=== PATIENT | male | born 1980 | race Caucasian/White ===

== ENCOUNTER 2018-12-03 16:21 | Emergency (ER) | payer SELFPAY ==
[2018-12-03 16:22] VITALS: BP 130/77; PULSE 85; RESP 16; TEMP 36.7; O2SAT 97; BMI 31.8
--- NOTE | 2018-12-03 16:50 | ED.VIS.EYE ---
History of Present Illness Chief Complaint: Eye Problem Informant: Patient Location: Left Eye Onset: Today Context: Sudden Onset Timing: Continuous Current Severity: Moderate Maximum Severity: Severe Worsened by: Light Relieved by: Nothing Associated Symptoms - Eyes: Burning, Foreign body sensation, Pain, Photophobia Visual Changes: left: Blurred vision History of injury: Yes, Direct trauma - Picking up leaves and poked with stick. Visual correction: None Narrative: Patient is a 38-year-old male presents with blunt trauma to left eye. He was poked with a stick. He denies anabolic allergies. He does report blurred vision and photophobia. Prior similar symptoms: No Recent Illness/Hospitalization: No - Past Medical History (1) No significant past medical history Status: Acute Past Medical History - Allergies and Home Meds Allergies/Adverse Reactions: Allergies oxycodone [From Percocet] Adverse Reaction (Verified 12/03/18 16:37) Nausea Primary Care Physician: NOT,DEFINED [Primary Care Provider] - Past Medical History: None Surgical History: no surgical history Lives: Spouse/ Significant Other, With Family Smoking Status: Never smoker Drugs: None Review of Systems General: Denies: Chills, Fever, Subjective Eyes: Reports: - - He reports foreign body and photophobia. Denies: Visual changes - bilaterally, Blurred Vision - bilaterally, Diplopia ENT: Denies: Rhinorrhea, Sore throat Hematologic: Denies: Easy bruising, Easy bleeding Allergy: Denies: Uticaria, Swelling of the mouth Physical Exam Visual Acuity: bilateral: 20/20 Visual Acuity: Uncorrected Eyelid: Normal inspection, Right eyelid everted, Left eyelid everted, No foreign body Right Conjunctiva/Sclera: Normal inspection, No foreign body, No erythema Left Conjunctiva/Sclera: Normal inspection, No foreign body, No erythema Right Cornea: Normal inspection Left Cornea: No foreign body, Corneal abrasion, Fluorescein dye uptake, - - There is no laceration. Negative Deirdre test. There is fluorescein uptake. There is no cells or flare noted. Extraocular Motion: Normal exam, No pain, No palsy, No nystagmus Pupils: Normal accomodation, PERRL Posterior Segment: Normal fundoscopic exam Vital Signs/Narrative: Vital Signs Temp Pulse Resp BP Pulse Ox 12/03/18 16:22 98.1 F 85 16 130/77 H 97 Patient presents with traumatic injury to the left eye. Visual acuity is 20/20. Case was discussed Dr. Buck for follow-up. She agrees with ciprofloxacin ophthalmic solution. She also requested erythromycin ophthalmic ointment. Inital Vital Signs reviewed: Yes General: Well nourished, Well developed Head: Normocephalic, Atraumatic ENT: Moist mucous membranes, No rhinorrhea, Dry mucous membranes Neurological: Alert, Oriented x3, Cranial nerves II-XII grossly intact, Normal Strength, Normal Sensation Psychological: Normal affect Diagnostic/Tx/Re-eval - Treatment and Re-Evaluation Antibiotic: left eye - Medical Decision Making Case discussed with Dr. Buck who is on for ophthalmology. Patient was discharged with prescription for erythromycin ophthalmic ointment and ciprofloxacin drops. He is to call office on Wednesday for follow-up. Procedures Procedure(s): Slit-lamp examination ED Disposition - Plan for ED Patient: Disposition: Home or Assisted Living Bad tableInstructions: ED Eye Injury Corneal Abrasion Prescriptions: Ciprofloxacin 0.3% [Ciloxan] 1 drp LEFT EYE Q2H #1 bottle Erythromycin Ophthalmic 1 applic LEFT EYE Q2H #1 tube Referrals: NOT,DEFINED [Primary Care Provider] - Nae Buck MD [STAFF PHYSICIAN] - 12/05/18
[2018-12-03] MEDS: Ciprofloxacin 0.3% 2.5ml Bottle 2 DRP LEFT EYE (17:12)
[2018-12-03] MEDS: Erythromycin Base 1 OPTH.TUBE 1 APPLIC LEFT EYE (17:12)
[2018-12-03] MEDS: Fluorescein 1 MG STRIP 1 STRIP LEFT EYE (17:13)
[2018-12-03] MEDS: Tetracaine 0.5% Ophthalmic Bottle 1 DRP LEFT EYE (17:13)
== END 2018-12-03 17:16 | disposition home or self-care (01) ==
PROVIDERS: Emergency Provider Emergency Medicine
DX: S05.02XA Injury of conjunctiva and corneal abrasion without foreign body, left eye, initial encounter (principal); W22.8XXA Striking against or struck by other objects, initial encounter; Y93.9 Activity, unspecified; Y92.9 Unspecified place or not applicable; Y99.9 Unspecified external cause status
CPT/HCPCS: 99282

== ENCOUNTER 2021-04-04 08:46 | Emergency (ER) | payer BC, SELFPAY ==
[2021-04-04 08:47] VITALS: BP 142/96; PULSE 60; RESP 16; TEMP 36.6; O2SAT 99; BMI 32.6
--- NOTE | 2021-04-04 09:11 | CT_ITS ---
STUDY: CT ABDOMEN AND PELVIS WITHOUT CONTRAST REASON FOR EXAM: Male, 40 years old. Left flank pain, eval for stone RADIATION DOSAGE (If Supplied By Facility): CTDIvol = ( 13.56 ) mGy, DLP = ( 776.07 ) mGycm TECHNIQUE: Transaxial images were obtained from the dome of the diaphragm to the symphysis pubis without oral contrast, and without intravenous contrast. Sagittal and coronal images were reconstructed. Individualized dose optimization techniques were used for this CT. COMPARISON: None. FINDINGS: The visualized lung bases are unremarkable. The visualized portions of the heart are within normal limits. Normal liver. Normal gallbladder and extrahepatic biliary system. Normal spleen. Normal pancreas. Normal bilateral adrenal glands. There is a 3.6 mm calculus in the upper pole of the right kidney. Is evidence of a horseshoe kidney. Punctate calculus in the lower pole calyx of the left kidney. There is also evidence of a 4 mm calculus in the lower pole calyx of the left kidney. There is a 4 mm calculus in the distal portion of the left ureter just proximal to the left ureterovesical vesicle junction. Incidental note is made a left retroaortic renal vein. Normal visualized stomach. Normal small intestine. Normal colon. The appendix is visualized and appears normal. Normal abdominal aorta. Normal inferior vena cava. Normal retroperitoneum. Normal urinary bladder. There is a small umbilical hernia containing fat. Normal osseous structures. CT/Abdomen/Pelvis without Cont IMPRESSION: Horseshoe kidneys. 4 mm calculus in the distal portion of left ureter. Nonobstructive bilateral intrarenal calculi. Electronically Signed: Pedro Connelly MD at 10:03 EDT , Service support ,
[2021-04-04] MEDS: Ketorolac 30 MG/ML Syringe IV (09:16)
--- NOTE | 2021-04-04 09:22 | EDS_ITS ---
HPI History of Present Illness Chief Complaint: Flank Pain Informant: patient Narrative Narrative: Patient is a 40-year-old previously healthy male who presents to the emergency department for left-sided flank/abdominal pain. This started earlier today. Over the past 2 days he felt like his urine was darker. He has never had this pain before. He currently rates as a 7 out of 10 sharp pain. He has not taking anything for it. He was feeling nauseous earlier with this but no vomiting. No change in bowel movements. No previous abdominal surgeries. No painful urination or increased frequency. No pain in testicles. No known aggravating or relieving factors. PFSH PFSH Home Medications ciprofloxacin HCl 1 drp LEFT EYE Q2H #1 bottle 12/03/18 [Rx Last Taken Unknown] erythromycin 1 applic LEFT EYE Q2H #1 tube 12/03/18 [Rx Last Taken Unknown] hydrocodone-acetaminophen 1 tab PO Q8H PRN 3 Days #10 tab 04/04/21 [Rx Last Taken Unknown] naproxen [Naprosyn] 500 mg PO BID PRN #20 tab 04/04/21 [Rx Last Taken Unknown] ondansetron 4 mg PO Q8H PRN 4 Days #12 tab 04/04/21 [Rx Last Taken Unknown] tamsulosin [Flomax] 0.4 mg PO DAILY #7 cap 04/04/21 [Rx Last Taken Unknown] Allergy/AdvReac Type Severity Reaction Status Date / Time oxycodone [From Percocet] AdvReac Nausea Verified 04/04/21 08:49 Social History Smoking Status: Never smoker ROS ROS ED Constitutional Constitutional ED: Denies chills or fever(s) Eyes Eyes: Denies change in vision ENT ENT ED: Denies epistaxis or rhinorrhea Cardiovascular Cardiovascular: Denies chest pain or palpitations Respiratory/Chest Respiratory/Chest: Denies cough, dyspnea or dyspnea on exertion Gastrointestinal Gastrointestinal: Reports abdominal pain and nausea; Denies diarrhea or vomiting Genitourinary Genitourinary ED: Denies dysuria, hematuria or urinary frequency Musculoskeletal Musculoskeletal: Reports back pain; Denies neck pain Integumentary Denies rash Neurologic Neurologic: Denies dizziness, headache(s) or weakness EXAM Physical Exam Const Vital Signs: 04/04/21 08:47 04/04/21 10:31 Temperature 97.9 F Temperature Source Temporal Pulse Rate 60 76 Respiratory Rate 16 15 Blood Pressure 142/96 H 130/76 H Blood Pressure Mean 111 Pulse Ox 99 100 Oxygen Delivery Method Room Air Positive well nourished and well developed General Appearance ED: well developed and NAD HEENT Reports normocephalic, head/scalp atraumatic and moist mucous membranes Eyes PERRL and EOMs intact bilaterally Neck supple Chest Wall inspection of chest normal Resp normal respiratory effort and clear to auscultation bilaterally Auscultation: Negative for rales, rhonchi or wheezes Cardio regular rate, regular rhythm and no murmurs GI normal to inspection, nondistended, normoactive bowel sounds and non-tender Palpation: soft; Negative for guarding or rebound tenderness present Back/Spine no CVA tenderness Extremity normal to inspection Neuro no sensory deficits noted Sensorium / Orientation: alert Motor Exam: strength 5/5 throughout Psych mental status grossly normal Skin no rashes or lesions noted MDM MDM MDM Narrative Medical decision making narrative: Patient presents to the ED for left-sided flank pain. On arrival to the ED vital signs within normal limits. He is in no acute distress. He is given a dose of Toradol for symptomatic treatment. CT scan of the abdomen/pelvis and urinalysis being obtained for suspected kidney stone. CT scan did show a horseshoe kidney. There is also a 4 mm obstructing stone in the left ureter. Urine did have positive nitrites but no other signs of infection including white blood cells, or bacteria. Patient's lab work did not reveal a high white blood cell count. Kidney function within normal limits. At this time will treat symptomatically. Is given a prescription for [place], Naprosyn, as Flomax and Zofran. He does have a intolerance to Percocet and I state that this can occur with the [place] as well to take the Zofran with it if he needs to. He is given urology referral for close follow-up. Return precautions were reviewed including any significant increase in pain, developing systemic symptoms. He understands and is agreeable this plan. All questions were answered. Lab Data Labs: Laboratory Results - last 24 hr 04/04/21 04/04/21 04/04/21 08:55 08:55 09:20 WBC 8.1 RBC 5.14 Hgb 15.5 Hct 44.9 MCV 87.4 MCH 30.2 MCHC 34.5 RDW Std Deviation 38.7 RDW Coeff of Heavenly 12.0 Plt Count 304 MPV 10.6 Immature Gran % (Auto) 1.000 H Neut % (Auto) 74.0 H Lymph % (Auto) 18.2 L [place] % (Auto) 5.1 Eos % (Auto) 1.1 Baso % (Auto) 0.6 Absolute Neuts (auto) 6.0 Absolute Lymphs (auto) 1.47 Nucleated RBC % 0 Sodium 137 Potassium 4.7 Chloride 105 Carbon Dioxide 29.0 Anion Gap 3 L BUN 15 Creatinine 1.11 Estim Creat Clear Calc 87.30 Est GFR (MDRD) Af Amer 95 Est GFR (MDRD) Non-Af 79 BUN/Creatinine Ratio 13.5 Glucose 94 Calcium 8.7 Urine Color Brown Urine Clarity Cloudy Urine pH 5.0 Ur Specific [place] 1.020 Urine Protein 100 H Urine Glucose (UA) Normal Urine Ketones 5 H Urine Occult Blood 250 H Urine Nitrite Positive H Urine Bilirubin Negative Urine Urobilinogen Normal Ur Leukocyte Esterase 25 H Urine RBC > 100 SEEN Urine WBC 0-5 SEEN Ur Squamous Epith Cells 0 SEEN Urine Bacteria 0 SEEN Urine Mucus 0 SEEN Radiography Diagnostic Testing: Radiology Impression Abdomen/Pelvis CT 04/04/21 09:11 IMPRESSION: Horseshoe kidneys. 4 mm calculus in the distal portion of left ureter. Nonobstructive bilateral intrarenal calculi. Electronically Signed: Pedro Connelly MD at 10:03 EDT , Service support , Discharge Plan Triage Chief Complaint: Flank Pain ED Provider: Mike Dominguez Dx/Rx/DC Orders Clinical Impression: Kidney stone, Horseshoe kidney Instructions: ED Kidney Stone w/ Colic Prescriptions: New naproxen [Naprosyn] 500 mg tablet 500 mg PO BID PRN (Reason: pain) Qty: 20 RF: 0 ondansetron 4 mg tablet,disintegrating 4 mg PO Q8H PRN (Reason: nausea and vomiting) 4 Days Qty: 12 RF: 0 hydrocodone-acetaminophen 5-325 mg tablet 1 tab PO Q8H PRN (Reason: pain) 3 Days Qty: 10 RF: 0 tamsulosin [Flomax] 0.4 mg capsule 0.4 mg PO DAILY Qty: 7 RF: 0 No Action ciprofloxacin HCl 1 DROP bottle 1 drp LEFT EYE Q2H Qty: 1 RF: 0 erythromycin 1 GM ointment 1 applic LEFT EYE Q2H Qty: 1 RF: 0 Primary Care Provider: Care Physician,No Primary Referrals: Duane Sampson MD [STAFF PHYSICIAN] - 3-5 Days if not improving Care Physician,No Primary [Primary Care Provider] - Disposition Disposition: Home, Self Care Discharge Date/Time: 04/04/21 10:32
[2021-04-04 09:28] LABS: Bacteria 0 SEEN /hpf (None Seen); Mucous, Urine 0 SEEN /hpf (<or=2+); Squamous Epithelial Cells - UA 0 SEEN /hpf (0-5)
[2021-04-04 09:30] LABS: Color, Urine Brown (Yellow); Glucose, Dipstick Normal (Normal); Ketone-Dipstick 5 mg/dl (Negative); Leukocyte Esterase-Dipstick 25 /ul (Negative); Nitrite-Dipstick Positive (Negative); Occult Blood-Urine 250 /ul (Negative); Protein-Dipstick 100 mg/dl (Negative); Urine Bilirubin Dipstick Negative (Negative); Urine Clarity Cloudy (Clear); Urine Urobilinogen Normal (Normal)
[2021-04-04 09:39] LABS: Red Blood Cells-Urine > 100 SEEN /hpf (0-5); White Blood Cells 0-5 SEEN /hpf (0-5)
[2021-04-04 09:53] LABS: Absolute Lymphocyte Count 1.47 X10^3/uL (0.83-4.51); Basophil# 0.05 X10^3/uL; Basophil% 0.6 % (0-1); Eosinophil# 0.09 X10^3/uL; Eosinophils% 1.1 % (0-5); Hematocrit 44.9 % (40-54); Hemoglobin 15.5 g/dL (13.0-16.5); Lymphocyte # 1.47 X10^3/ul (0.83-4.51); Lymphocyte % 18.2 % (19-41); Mean Corp Hgb Conc 34.5 g/dL (32-36); Mean Corpuscular Hgb 30.2 pg (27.0-32.0); Mean Corpuscular Volume 87.4 fL (80-94); Mean Platelet Vol. 10.6 fl (6.2-12.0); Monocyte# 0.41 X10^3/uL; Monocyte% 5.1 % (0-10); NRBC Flagged by Analyzer 0 % (0-5); Neutrophil # 5.99 X10^3/uL (2.7-7.7); Platelet Count 304 K/mm3 (150-450); RBC Distribution Width SD 38.7 fl (35.1-43.9); Red Blood Count 5.14 M/mm3 (4.6-6.2); White Blood Count 8.1 K/mm3 (4.4-11.0)
[2021-04-04 10:03] LABS: Anion Gap 3 (5-15); BUN 15 mg/dL (7-18); BUN/Creat Ratio 13.5 RATIO (10-20); Calcium,Total 8.7 mg/dL (8.5-10.1); Chloride 105 mmol/L (98-107); Creatinine, Serum 1.11 mg/dL (0.70-1.30); EST Glomerular Filtration Rate 79 mL/min (>60); Est Glom Filt Rate - Afr Amer 95 mL/min (>60); Glucose 94 mg/dL (74-106); Potassium 4.7 mmol/L (3.5-5.1); Sodium Level 137 mmol/L (136-145)
[2021-04-04 10:31] VITALS: BP 130/76; PULSE 76; RESP 15; O2SAT 100
== END 2021-04-04 10:32 | disposition home or self-care (01) ==
PROVIDERS: Emergency Provider Emergency Medicine
DX: N20.2 Calculus of kidney with calculus of ureter (principal); Q63.1 Lobulated, fused and horseshoe kidney; Z79.1 Long term (current) use of non-steroidal anti-inflammatories (NSAID)
CPT/HCPCS: 74176; 80048; 81001; 85025; 96374; 99283; A4216